=== PATIENT | male | born 1995 | race Caucasian/White ===

== ENCOUNTER 2016-09-01 12:59 | Emergency (ER) | payer MEDICAID ==
[~2016-09-01] VITALS: Ht 167.6 cm; Wt 120.0 kg
[2016-09-01 13:04] VITALS: Ht 167.6 cm; Wt 120.0 kg
[2016-09-01] MEDS ORDERED: IBUPROFEN 600 MG TAB PO ONE (15:30)
--- NOTE | 2016-09-01 16:05 | RADRPT ---
PROCEDURE: XR Knee. CLINICAL INDICATION: Left knee pain. Trauma TECHNIQUE: Four of the left knee were obtained. The images reviewed on a PACS workstation. COMPARISON: None. FINDINGS: The bones appear intact, with no evidence of fracture, erosion, demineralization, or dislocation. T he alignment of the femorotibial and patellofemoral joints appears normal. No joint space narrowing is seen. No evidence of a joint effusion is seen. No soft tissue swelling is present. IMPRESSION: Unremarkable examination of the left knee. RPTAT: HPNM Physician Keesha Date Time Electronically viewed and signed by Physician Keesha on 09/01/2016 16:05 /
[2016-09-01] MEDS ORDERED: IBUP-1542 PO (16:09)
[2016-09-01] MEDS ORDERED: TRAM50TA2 PO (16:09)
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
== END 2016-09-01 16:48 | disposition home or self-care (01) ==
LOC: MERGE 12:59 → FTE 12:59
DX: S83.005A Unspecified dislocation of left patella, initial encounter (principal); J45.909 Unspecified asthma, uncomplicated; V13.4XXA Pedal cycle driver injured in collision with car, pick-up truck or van in traffic accident, initial encounter
CPT/HCPCS: 29505; 73564; Z7502; Z7610

== ENCOUNTER 2016-11-02 14:51 | Emergency (ER) | payer MEDICAID, OTHER ==
[~2016-11-02] VITALS: Ht 175.3 cm; Wt 90.0 kg
[~2016-11-02 14:51] MED LIST: IBUP-1542 PO; TRAM50TA2 PO
[2016-11-02 15:01] VITALS: Ht 175.3 cm; Wt 90.0 kg
[2016-11-02] MEDS ORDERED: TYL500 PO (15:06)
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
== END 2016-11-02 15:30 ==
LOC: E/R 14:51
DX: S09.90XA Unspecified injury of head, initial encounter (principal); S80.02XA Contusion of left knee, initial encounter; J45.909 Unspecified asthma, uncomplicated; Y04.0XXA Assault by unarmed brawl or fight, initial encounter
CPT/HCPCS: 99283

== ENCOUNTER 2016-12-30 17:21 | Emergency (ER) | payer MEDICAID, OTHER ==
[~2016-12-30] VITALS: Ht 172.7 cm; Wt 112.0 kg
[~2016-12-30 17:21] MED LIST changes: +TYL500 PO
[2016-12-30 17:22] VITALS: Ht 172.7 cm; Wt 112.0 kg
[2016-12-30] MEDS ORDERED: DOXYCYCLINE 100 MG TAB PO STA (19:24)
[2016-12-30] MEDS ORDERED: CIPROFLOXACIN 0.3% 2.5 ML OPH LEFT EYE STA (19:26)
[2016-12-30] MEDS ORDERED: FLUORESCEIN STRIP LEFT EYE ONE (19:30)
[2016-12-30] MEDS ORDERED: TETRACAINE 0.5% 4 ML OPH LEFT EYE ONE (19:30)
[2016-12-30] MEDS ORDERED: DOXY100T20 PO (20:43)
[2016-12-30] MEDS ORDERED: CPR3OO3.5 LEFT EYE (20:44)
--- NOTE | 2016-12-30 21:00 | ERD ---
ER Documentation Chief Complaint Date/Time DATE: 12/30/16 TIME: 20:58 Chief Complaint LT EYE REDNESS /SWELLING X 5 DAYS WITH WATERY DISCHARGE HPI This is a 21-year-old male presenting to the emergency room complaining of left eye redness and discharge for the past 5 days. Patient states that she he does have pain associated with it and rating it 4 out of 10. He denies any contact use. He states that that he was taking out the trash on 5 days ago so he thinks that maybe he got something in his eye. Denies any fevers. Denies any and medication for this ROS All systems reviewed and are negative except as per history of present illness. Medications Home Meds Active Scripts Ciprofloxacin Opht* (Ciloxan*) 0.3%-3.5 Opht Oint, 1 APPLIC LEFT EYE TID for 7 Days, EA Prov:GWYN DEJESUS PA-C 12/30/16 Doxycycline Hyclate* (Doxycycline Hyclate*) 100 Mg Tablet.dr, 100 MG PO BID for 10 Days, TAB Prov:GWYN DEJESUS PA-C 12/30/16 Acetaminophen* (Tylenol*) 500 Mg Tab, 500 MG PO Q4H Y for MILD PAIN LEVEL 1-3, # 10 TAB Prov:JEFFREY MOORE DO 11/02/16 Ibuprofen* (Motrin*) 600 Mg Tab, 600 MG PO Q6, #20 TAB Prov:ABISAI WHARTON MD 09/01/16 Tramadol HCl (Tramadol HCl) 50 Mg Tablet, 50 MG PO Q4 Y for PAIN, #15 TAB Prov:ABISAI WHARTON MD 09/01/16 Allergies Allergies: Coded Allergies: No Known Allergy (Unverified , 03/16/14) PMhx/Soc Medical and Surgical Hx: pt denies Surgical Hx History of Surgery: No Anesthesia Reaction: No Hx Neurological Disorder: No Hx Respiratory Disorders: Yes (asthma) Hx Cardiac Disorders: No Hx Psychiatric Problems: No Hx Miscellaneous Medical Probl: No Hx Alcohol Use: No Hx Substance Use: No Hx Tobacco Use: No Smoking Status: Never smoker Physical Exam Vitals Vital Signs Date Time Temp Pulse Resp B/P Pulse Ox O2 Delivery O2 Flow Rate FiO2 12/30/16 17:22 98.0 81 16 143/66 99 Physical Exam General: WD/WN, in no apparent distress, non-toxic appearing HENT: NC/AT EYES: Left eye is erythematous with discharge and mild upper eyelid swelling Extraocular muscles intact, pupils equal and reactive to light with consensual response Fluorescein staining examination with harrell lamp did not show any evidence of corneal abrasion Negative Davide test NECK: Supple; no LAD PULM: Normal labored breathing CV: RRR Good capillary refill GI: Non-distended, no guarding BACK: No masses EXT: No clubbing, cyanosis, or edema NEURO: Moves on all fours SKIN: intact PSYCH: Normal mood Results 24 hrs Current Medications Medications (Trade) Dose Ordered Sig/Clement Route PRN Reason Start Time Stop Time Status Last Admin Dose Admin Tetracaine HCl (Tetracaine 0.5% Steri-Unit Marisa) 1 drop ONCE ONCE LEFT EYE 12/30/16 19:30 12/30/16 19:32 DC Fluorescein Sodium ([id number]) 1 strip ONCE ONCE LEFT EYE 12/30/16 19:30 12/30/16 19:32 DC Doxycycline Hyclate (Vibramycin) 100 mg ONCE STAT PO 12/30/16 19:24 12/30/16 19:26 DC 12/30/16 19:24 Ciprofloxacin HCl (Ciloxan 0.3% Oph) 2 drop ONCE STAT LEFT EYE 12/30/16 19:26 12/30/16 19:27 DC 12/30/16 19:26 Procedures/MDM This is a 21-year-old male presenting to the emergency department with left eye redness, pain and swelling for the past 5 days likely due to a bacterial conjunctivitis of the left eye with associated mild upper eyelid periorbital cellulitis. There was no evidence of orbital cellulitis, extraocular muscle entrapment, corneal abrasion, corneal ulcer, glaucoma, anterior uveitis, blepharitis, and other ophthalmologic emergencies. PROCEDURE NOTE: Consent was obtained. Two gtts of 0.5% tetracaine was placed in eye.left eye Fluorescein stained. No uptake noted. Patient tolerated it well. Stable to be discharged home to follow-up with csm consultant within 24 hours. Prescriptions ciprofloxacin and doxycycline given. Discussed to return to the ER if condition worsens or not improving as expected. Patient understood and agreed with this plan. Departure Diagnosis: Primary Impression: Conjunctivitis Condition: Stable Patient Instructions: Conjunctivitis, Bacterial Referrals: [facility] Hours: Mon - Fri 9:00 AM - 5:00 PM Additional Instructions: FOLLOW UP WITH YOUR PRIMARY CARE PHYSICIAN TOMORROW.Return to this facility if you are not improving as expected. Take all medicines as directed. Return to this facility if you are not improving as expected. GWYN DEJESUS PA-C Dec 30, 2016 20:59
== END 2016-12-30 21:03 | disposition home or self-care (01) ==
LOC: FTE 17:21
DX: H10.9 Unspecified conjunctivitis (principal); J45.909 Unspecified asthma, uncomplicated
CPT/HCPCS: Z7610 ×4; 99284

== ENCOUNTER 2018-03-02 08:03 | Emergency (ER) | END 2018-03-02 08:22 | disposition home or self-care (01) ==